=== PATIENT | female | born 1945 | race Caucasian/White ===

== ENCOUNTER → 2025-05-02 08:53 | Outpatient (REF) | payer MEDICARE, SELFPAY | LOC: HWRAD 08:53 | PROVIDERS: ATTENDING PHYSICIAN Specialist; FAMILY PHYSICIAN Internal Medicine | DX: M19.011 Primary osteoarthritis, right shoulder (principal) | CPT/HCPCS: 73200 ==

== ENCOUNTER 2025-06-06 06:20 | Day surgery (SDC) | payer MEDICARE, SELFPAY ==
--- NOTE | 2025-05-02 11:41 | CM ---
Late Note from 04/28
CM spoke with patient via Phone. CM confirmed demographics. Patient lives independently. Patient does not have a history of VN, SNF or DME. Patient is active with her PCP. Patient has medication coverage.
Patient plans to use a private PT for outpatient PT when medically cleared.
Patient does not know who will be driving her to her surgery at this time, but does have friends/family to make arrangements.
PLAN: home SDS, outpatient PT when medically cleared.
[2025-05-17 13:53] VITALS: BMI 32.5
[2025-05-17 14:38] VITALS: BMI 32.5
[2025-05-17 14:42] LABS: Hematocrit 43.7 % (37.0-47.0); Hemoglobin 14.8 g/dL (12.0-16.0); Mean Corp Hgb Conc. 33.9 g/dL (33.0-37.0); Mean Corpuscular Volume 89.2 fL (81.0-99.0); Platelet Count 265 10^3/uL (130-400); Red Cell Dist. Width 12.6 % (11.5-14.5)
[2025-05-17 14:58] LABS: ALT (SGPT) 17 U/L (0-35); AST (SGOT) 24 U/L (14-36); Albumin 4.6 g/dl (3.5-5.0); Alkaline Phosphatase 72 U/L (38-126); Blood Urea Nitrogen 17 mg/dl (7-17); Calcium 9.9 mg/dl (8.4-10.2); Carbon Dioxide 25 mmol/L (22-30); Chloride 107 mmol/L (98-107); Estimated Creatinine Clearance 64 ml/min; Glucose 116 mg/dl (70-99); Potassium 4.0 mmol/L (3.5-5.1); Sodium 141 mmol/L (135-145); Total Protein 7.5 g/dl (6.3-8.2); eGFR > 60.00
[2025-05-18 08:58] LABS: Glycohemoglobin (HgbA1c) 5.6 % (4.0-5.6)
[2025-05-30 14:12] VITALS: BMI 32.5
[2025-06-06] VITALS (9 sets, daily range): BP systolic 136–171; BP diastolic 59–86
[2025-06-06] MEDS: CELEBREX 200 MG PO (09:52)
[2025-06-06] MEDS: TYLENOL 1000 MG PO (09:52)
[2025-06-06] MEDS: NORMOSOL-R/PLASMALYTE-A 1000 IV (09:52)
--- NOTE | 2025-06-06 12:06 | W.DS.TRANS ---
DC Summary - Abatement Worker
-
Discharge Instructions:
Sleep Apnea Risk Intermediate
Discharge Diagnosis/Procedures R Reverse TSA Dr. Dawson 06/06/25
Diet As tolerated
Activity No strenuous activity
Driving Restrictions No driving
Instructions:
Stand-Alone Forms: SDS Total Shoulder D/C Inst.
Changes to Home Medications: Yes
Discharge Medications:
DC Medications w/original date entered in [facility]
celecoxib 200 mg capsule (Celebrex) 200 mg PO DAILY #14 caps 05/17/25
dexamethasone 4 mg tablet 4 mg PO BID Anti-inflammatory #7 tabs 05/17/25
famotidine 20 mg tablet (Pepcid) 20 mg PO HS #30 tabs 05/17/25
gabapentin 300 mg capsule 300 mg PO HS neuropathic pain/sleep #10 caps 05/17/25
mupirocin 2 % topical ointment 1 applic intranasal BID #1 tube 05/17/25
ondansetron HCl 4 mg tablet 4 mg PO Q6H PRN nausea and vomiting #30 tabs 05/17/25
tramadol 50 mg tablet 50 - 100 mg (1 - 2 x 50 mg) PO Q6H PRN moderate-severe pain #30 tabs 05/17/25
acetaminophen 325 mg tablet (Tylenol) 650 mg (2 x 325 mg) PO QID #1 tab 06/06/25
aspirin 325 mg tablet 325 mg PO DAILY blood clot prevention #1 tab 06/06/25
docusate sodium 100 mg capsule (Colace) 100 mg PO BID stool softner #1 cap 06/06/25
magnesium hydroxide 400 mg/5 mL oral suspension (Milk of Magnesia) 30 ml PO HS PRN constipation #1 mL 06/06/25
sennosides 8.6 mg tablet (Senokot) 17.2 mg (2 x 8.6 mg) PO BID laxative #2 tabs 06/06/25
Home Medication Changes
celecoxib 200 mg capsule (Celebrex) 200 mg PO DAILY #14 caps 05/17/25
dexamethasone 4 mg tablet 4 mg PO BID Anti-inflammatory #7 tabs 05/17/25
famotidine 20 mg tablet (Pepcid) 20 mg PO HS #30 tabs 05/17/25
gabapentin 300 mg capsule 300 mg PO HS neuropathic pain/sleep #10 caps 05/17/25
mupirocin 2 % topical ointment 1 applic intranasal BID #1 tube 05/17/25
ondansetron HCl 4 mg tablet 4 mg PO Q6H PRN nausea and vomiting #30 tabs 05/17/25
tramadol 50 mg tablet 50 - 100 mg (1 - 2 x 50 mg) PO Q6H PRN moderate-severe pain #30 tabs 05/17/25
acetaminophen 325 mg tablet (Tylenol) 650 mg (2 x 325 mg) PO QID #1 tab 06/06/25
aspirin 325 mg tablet 325 mg PO DAILY blood clot prevention #1 tab 06/06/25
docusate sodium 100 mg capsule (Colace) 100 mg PO BID stool softner #1 cap 06/06/25
magnesium hydroxide 400 mg/5 mL oral suspension (Milk of Magnesia) 30 ml PO HS PRN constipation #1 mL 06/06/25
sennosides 8.6 mg tablet (Senokot) 17.2 mg (2 x 8.6 mg) PO BID laxative #2 tabs 06/06/25
Pending Results: No
--- NOTE | 2025-06-06 14:30 | PTCARENOTE ---
Report passed over to Jesica VEGA at 1430. Will monitor patient.
[2025-06-06] MEDS: ANCEF 5 IV (15:16)
== END 2025-06-06 15:30 | disposition home or self-care (01) ==
LOC: SDS 06:20
PROVIDERS: ATTENDING PHYSICIAN Specialist; FAMILY PHYSICIAN Internal Medicine; OTHER PHYSICIAN Physician Assistant
DX: M19.011 Primary osteoarthritis, right shoulder (principal); Z96.611 Presence of right artificial shoulder joint
CPT/HCPCS: 23472; 36415; 73020; 80053; 83036; 85027; 87070; 93005; C1713; C1776

== ENCOUNTER 2025-10-07 08:23 | Emergency (ER) | payer MEDICARE, SELFPAY ==
[2025-10-07 08:33] VITALS: BP 168/85
[2025-10-07] MEDS: AUGMENTIN 875 MG/125 MG 1 TABLET PO (09:46)
--- NOTE | 2025-10-07 10:05 | ED.SKININJ ---
HPI-Injury
General
Chief Complaint: Bite
Source: patient
Time Seen by Provider: 10/07/25 09:17
History of Present Illness-Injury
Initial Injury comments:
80-year-old female with no reported significant past medical history presents to the emergency department for evaluation after she was bit on the left index finger by her neighbors jose j martinez yesterday morning, today noticed increased pain redness
and warmth to the volar surface of the left index finger. Patient denies any fevers, chills, rigors. Cat is unvaccinated. Patient is right-hand dominant and she believes her tetanus vaccine is up-to-date.
Past History
Past History
ED Past Medical History: None
ED Past Surgical History: Gynecological (Ovarian cyst ), Tonsilectomy and Other (Blepharoplasty bilateral eyes 03/14/2010 )
Social History
Tobacco: Non-smoker
Alcohol: None
Drug: None
Personal:
Living: alone
Employment: Employed
Review of Systems
Review of Systems
All Other Systems: ROS reviewed and negative except as documented in HPI and ROS
Phy Exam
Physical Exam
Physical Exam:
GENERAL: Alert , in no apparent distress
EYE: conjunctiva clear
Head: Normocephalic atraumatic
NECK: Supple,
ENT: mmm.
LUNGS: no acute respiratory distress
NEUROLOGICAL: Alert and oriented
SKIN: Warm and dry, volar surface of the left index finger at the level of the middle phalynx is erythematous/edematous but patient still able to ROM without difficulty. dry, non-weeping
MUSCULOSKELETAL: well perfused.
PSYCH: Normal and appropriate interaction.
Scores
Heart Failure Risk
Heart Failure Risk Score: Not Applicable
Heart Score for Chest Pain Patients
STEMI patient?: Not applicable
Withdrawal Assessment of Alcohol
Withdrawal Assessment Completed?: Not applicable
Course
Orders/Labs/Results
Orders:
Orders
10/07/25 09:38
Amoxicillin 875 mg/Clav 125 mg [Augmentin 875 mg/125 mg] 1 tablet PO NOW STA
Vital Signs
Initial and Last Documented VS:
Initial Vital Signs
Temp Pulse Resp BP Pulse Ox
97.9 F 75 18 168/85 99
10/07/25 08:33 10/07/25 08:33 10/07/25 08:33 10/07/25 08:33 10/07/25 08:33
Last Documented Vital Signs
Temp Pulse Resp BP Pulse Ox
97.9 F 79 20 142/74 98
10/07/25 08:33 10/07/25 10:12 10/07/25 10:12 10/07/25 10:12 10/07/25 10:12
MDM/Problems Addressed
Differential Diagnosis Includes:
Cellulitis
Felon
Tenosynovitis
Septic joint
MDM/Problems Addressed:
80-year-old female presenting to the ER for evaluation after cat bite, injury occurred approximately 24 hours ago, patient now with signs of at minimum a mild cellulitis. She is afebrile, no streaking or lymphangitis. At this time I do think
outpatient oral antibiotic treatment is reasonable but did discuss with patient reasons to present back to the emergency department including worsening erythema, fevers or diminished range of motion of the finger secondary to pain/swelling. I also
had an extensive conversation with the patient about rabies treatment given the cat is feral. She did not see the cat this morning with inability to potentially monitor the cat for any signs of rabies. After deliberating patient ultimately decided
she wanted to forego the rabies series. I did inform the patient that she would have approximately 21 days to get treatment for the rabies vaccine series if she were to change her mind. Patient would present back to the emergency department for
treatment as needed. Otherwise stable for discharge home. Prescription for Augmentin sent to pharmacy.
*Pulse Oximetry
SaO2: 99
Oxygen Mode of Delivery: Room air
Patient hypoxic: no
*Critical Care Note
Total Time (30-74mins, 75-104mins- exclusive of procedures): Not Applicable
ED Attending Note
-
Portions of this chart may have been created with voice recognition software.� Occasional wrong word or��sound alike� substitutions may have occurred due to the inherent limitations of voice recognition software.
Discharge Plan
Departure
Patient Disposition: Home (Routine Discharge)
Date of Disposition: 10/07/25
Time of Disposition: 10:05
Patient with high blood pressure during this ER visit?: Yes
Discharge Problem:
Cat bite, Cellulitis of left index finger
Instructions: Animal Bites (DC)
Prescriptions:
New
amoxicillin-pot clavulanate 875-125 mg tablet
1 tab PO BID Qty: 19 0RF
No Action
tramadol 50 mg tablet
50 - 100 mg PO Q6H PRN (Reason: moderate-severe pain) Qty: 30 0RF
Rx Instructions:
1 tab for moderate pain, 2 if severe
Dx total joint
celecoxib [Celebrex] 200 mg capsule
200 mg PO DAILY Qty: 14 0RF
Rx Instructions:
Take with food.
DO NOT take within 2 hours of Aspirin post-surgery.
dexamethasone 4 mg tablet
4 mg PO BID Qty: 7 0RF
Rx Instructions:
Start night of discharge and take twice a day until finished.
Take with food.
gabapentin 300 mg capsule
300 mg PO HS Qty: 10 0RF
mupirocin 2 % ointment
1 applic intranasal BID Qty: 1 0RF
ondansetron HCl 4 mg tablet
4 mg PO Q6H PRN (Reason: nausea and vomiting) Qty: 30 0RF
famotidine [Pepcid] 20 mg tablet
20 mg PO HS Qty: 30 0RF
Rx Instructions:
Take nightly while on post-surgical pain meds to reduce GI upset.
aspirin 325 mg tablet
325 mg PO DAILY Qty: 1 0RF
Rx Instructions:
Take with food
docusate sodium [Colace] 100 mg capsule
100 mg PO BID Qty: 1 0RF
sennosides [Senokot] 8.6 mg tablet
17.2 mg PO BID Qty: 2 0RF
magnesium hydroxide [Milk of Magnesia] 400 mg/5 mL suspension
30 ml PO HS PRN (Reason: constipation) Qty: 1 0RF
Rx Instructions:
continue taking colace and senokot as advised--if no bowel movement 1 day after surgery -add milk of mag
acetaminophen [Tylenol] 325 mg tablet
650 mg PO QID Qty: 1 0RF
Rx Instructions:
SCHEDULED DOSING
Referrals:
Concha Javier DO [Family Provider, Internal Medicine]
Interventions
Interventions:
*Risk Screen - Suicide Last Done: 10/07/25 08:33
*General Assessment Last Done: 10/07/25 08:33
*Neglect/Abuse Screening Last Done: 10/07/25 08:33
*ED COVID-19 Vaccine History Last Done: 10/07/25 10:11
*ED Influenza Vaccine History Last Done: 10/07/25 10:11
*Nursing Disposition Last Done: 10/07/25 10:12
ED-Skin Assessment Last Done: 10/07/25 09:30
Discharge Date and Time
Discharge Date/Time: 10/07/25 10:13
Print Language: LAO
[2025-10-07 10:12] VITALS: BP 142/74
== END 2025-10-07 10:13 | disposition home or self-care (01) ==
LOC: EMR 08:23
PROVIDERS: EMERGENCY PHYSICIAN Student in an Organized Health Care Education/Training Program; FAMILY PHYSICIAN Internal Medicine
DX: S60.471A Other superficial bite of left index finger, initial encounter (principal); L03.012 Cellulitis of left finger; W55.01XA Bitten by cat, initial encounter
CPT/HCPCS: 99283

== ENCOUNTER 2025-10-19 09:08 | Emergency (ER) | payer MEDICARE, SELFPAY ==
[2025-10-19 09:09] VITALS: BP 162/85
[2025-10-19 09:38] VITALS: BMI 38.4
--- NOTE | 2025-10-19 10:06 | ED.GENMED ---
History of Present Illness
General
Chief Complaint: Rabies
Source: patient
Exam Limitations: none
Time Seen by Provider: 10/19/25 09:32
Nursing documentation reviewed up to this point in time: agreed with
History of Present Illness
History of Present Illness:
Patient is a 80-year-old female who presents to the emergency department for rabies vaccination. Patient states she has been caring for approximately 22 stray cats in the [place] her home. About 2 weeks ago she was bit on the left index
finger by one of the kittens. She was seen in the emergency department at that time where she was started on a course of Augmentin which she has since completed. A lengthy discussion was had regarding proceeding with rabies vaccination series
however she declined. Over the past 2 weeks, she reports that multiple of the kittens have . She is unsure if the cat that initially bit her is still alive. She discussed with the vet who recommended that she receive a rabies vaccination.
She states that the bite tori on her left index finger has healed well.
She is unsure when her last tetanus vaccination was. She has no history of prior rabies immunizations.
Past History
Past History
ED Past Medical History: None
ED Past Surgical History: Gynecological (Ovarian cyst ), Tonsilectomy and Other (Blepharoplasty bilateral eyes 03/14/2010 )
Social History
Tobacco: Non-smoker
Alcohol: None
Drug: None
Personal:
Living: alone
Employment: Employed
Review of Systems
Review of Systems
Allergies reviewed?: Yes
All Other Systems: ROS reviewed and negative except as documented in HPI and ROS
Phy Exam
Physical Exam
Physical Exam:
Vitals: Hypertensive, otherwise vital signs stable. Afebrile
General: Patient is well appearing, no acute distress
Skin: Warm and dry, no rashes or lesions. No erythema, swelling, or tenderness of left index finger
Head: Normocephalic, atraumatic
Throat: Protecting airway
Neck: Normal ROM
Cardiac: Regular rate
Pulm: No apparent respiratory distress
Abdomen: Nondistended
Extremities: No evidence of cyanosis or edema
Neuro: Grossly intact
Psychiatric: Normal affect.
Course
Orders/Labs/Results
Orders:
Orders
10/19/25 10:03
Rabies Immune Globulin/Pf [HyperRAB] 1,606 unit IM NOW STA
10/19/25 10:15
Rabies Vaccine (Pcec)/Pf [Rabavert Rabies Vacc W-Diluent] 2.5 unit IM .ONCE ONE
Vital Signs
Initial and Last Documented VS:
Initial Vital Signs
Temp Pulse Resp BP Pulse Ox
98.3 F 71 18 162/85 99
10/19/25 09:09 10/19/25 09:09 10/19/25 09:09 10/19/25 09:09 10/19/25 09:09
Last Documented Vital Signs
Temp Pulse Resp BP Pulse Ox
98.3 F 71 18 162/85 99
10/19/25 09:09 10/19/25 09:09 10/19/25 09:09 10/19/25 09:09 10/19/25 10:07
MDM/Problems Addressed
Differential Diagnosis Includes:
Not limited to: Need for rabies prophylaxis, cellulitis, etc.
MDM/Problems Addressed:
80 year-old female presenting for rabies vaccination series approximately two weeks following stray cat bite to left finger. Completed course of antibiotics. No additional bites or scratches. Vitals and physical exam as above. Initial bite tori on
left index finger has healed well without any signs of cellulitis.
Given known bite from stray cat without ability to appropriately monitor animals � will proceed with rabies vaccination series. Vaccination series discussed w/ patient at length.
She received Rabies Immunoglobulin and dose #1 of the rabies vaccine in the emergency department which she tolerated well.
Advised her to contact primary care provider to ensure that her tetanus vaccine is up-to-date.
Return precautions discussed. Patient verbalized understanding, all questions answered.
Chronic conditions affecting care:
N/A
Acute Exacerbation and/or Progression of Chronic Illness:
N/A
*Pulse Oximetry
SaO2: 99
Oxygen Mode of Delivery: Room air
Patient hypoxic: no
*EKG
Interpreted by ED Provider?: NA
*Ramp Manager Interpretation
Rate: Ramp Manager- N/A
*Critical Care Note
Total Time (30-74mins, 75-104mins- exclusive of procedures): Not Applicable
Data Reviewed
Review of Other/Old Records Reveals: Records (Reviewed ED visit summary from 10/07/25)
ED Attending Note
-
Portions of this chart may have been created with voice recognition software.� Occasional wrong word or��sound alike� substitutions may have occurred due to the inherent limitations of voice recognition software.
Discharge Plan
Departure
Patient Disposition: Home (Routine Discharge)
Date of Disposition: 10/19/25
Time of Disposition: 10:23
Patient with high blood pressure during this ER visit?: Yes
Condition: Good
Discharge Problem:
Rabies, need for prophylactic vaccination against
Instructions: BLOOD PRESSURE, Rabies
Prescriptions:
New
RabAvert (PF) 2.5 unit suspension for reconstitution
2.5 unit IM ONCE Qty: 3 0RF
Rx Instructions:
Inject 1mL on 10/22/25, 10/26/25, and 11/02/25
No Action
tramadol 50 mg tablet
50 - 100 mg PO Q6H PRN (Reason: moderate-severe pain) Qty: 30 0RF
Rx Instructions:
1 tab for moderate pain, 2 if severe
Dx total joint
celecoxib [Celebrex] 200 mg capsule
200 mg PO DAILY Qty: 14 0RF
Rx Instructions:
Take with food.
DO NOT take within 2 hours of Aspirin post-surgery.
dexamethasone 4 mg tablet
4 mg PO BID Qty: 7 0RF
Rx Instructions:
Start night of discharge and take twice a day until finished.
Take with food.
gabapentin 300 mg capsule
300 mg PO HS Qty: 10 0RF
mupirocin 2 % ointment
1 applic intranasal BID Qty: 1 0RF
ondansetron HCl 4 mg tablet
4 mg PO Q6H PRN (Reason: nausea and vomiting) Qty: 30 0RF
famotidine [Pepcid] 20 mg tablet
20 mg PO HS Qty: 30 0RF
Rx Instructions:
Take nightly while on post-surgical pain meds to reduce GI upset.
aspirin 325 mg tablet
325 mg PO DAILY Qty: 1 0RF
Rx Instructions:
Take with food
docusate sodium [Colace] 100 mg capsule
100 mg PO BID Qty: 1 0RF
sennosides [Senokot] 8.6 mg tablet
17.2 mg PO BID Qty: 2 0RF
magnesium hydroxide [Milk of Magnesia] 400 mg/5 mL suspension
30 ml PO HS PRN (Reason: constipation) Qty: 1 0RF
Rx Instructions:
continue taking colace and senokot as advised--if no bowel movement 1 day after surgery -add milk of mag
acetaminophen [Tylenol] 325 mg tablet
650 mg PO QID Qty: 1 0RF
Rx Instructions:
SCHEDULED DOSING
amoxicillin-pot clavulanate 875-125 mg tablet
1 tab PO BID Qty: 19 0RF
Stand Alone Forms: Rabies Vaccine Post Exp Dosing
Activity Restrictions/Additional Instructions:
RETURN TO THE EMERGENCY DEPARTMENT WITH ANY EVIDENCE OF VACCINATION REACTION, REDNESS, PAIN OR SWELLING AROUND VACCINATION SITES, OR ANY OTHER CONCERNS
- You received the rabies immunoglobulin and dose one of the rabies vaccine today in the emergency department. As discussed, this is a 4 dose series and you require 3 additional doses on 10/22/25, 10/26/25, and 11/02/25. These can be done at the
emergency department or you can schedule appointments at the infusion clinic for weekday doses. Please bring paper prescription with you to the infusion clinic.
- Please contact your primary care to ensure that you have had a tetanus booster in the past 5 years.
Monitor your symptoms closely and return to the emergency department with any acute worsening/new symptoms or any other concerns
Interventions
Interventions:
*Risk Screen - Suicide Last Done: 10/19/25 09:09
*General Assessment Last Done: 10/19/25 09:09
*Neglect/Abuse Screening Last Done: 10/19/25 09:38
*ED- Fall Risk Assessment Last Done: 10/19/25 09:38
*ED COVID-19 Vaccine History Last Done: 10/19/25 09:38
*ED Influenza Vaccine History Last Done: 10/19/25 09:38
*Nursing Disposition Last Done: 10/19/25 11:00
Discharge Date and Time
Discharge Date/Time: 10/19/25 11:00
Print Language: MONTENEGRIN
[2025-10-19] MEDS: RABAVERT RABIES VACC W-DILUENT 2.5 UNIT IM (10:37)
== END 2025-10-19 11:00 | disposition home or self-care (01) ==
LOC: EMR 09:08
PROVIDERS: EMERGENCY PHYSICIAN Student in an Organized Health Care Education/Training Program; FAMILY PHYSICIAN Internal Medicine
DX: Z20.3 Contact with and (suspected) exposure to rabies (principal); Z23 Encounter for immunization; Z29.14 Encounter for prophylactic rabies immune globulin
CPT/HCPCS: 99282; 90471; 96372; 90375; 90675; 99283

== ENCOUNTER 2025-10-25 19:08 | Emergency (ER) | payer MEDICARE, SELFPAY ==
[2025-10-25 19:11] VITALS: BP 183/94
[2025-10-25 19:37] LABS: Hematocrit 45.7 % (37.0-47.0); Hemoglobin 15.7 g/dL (12.0-16.0); Mean Corp Hgb Conc. 34.4 g/dL (33.0-37.0); Mean Corpuscular Volume 84.0 fL (81.0-99.0); Nucleated Red Blood Cells % 0 %; Platelet Count 244 10^3/uL (130-400); Red Cell Dist. Width 12.8 % (11.5-14.5)
[2025-10-25 19:58] LABS: ALT (SGPT) 28 U/L (0-35); AST (SGOT) 31 U/L (14-36); Albumin 4.8 g/dl (3.5-5.0); Alkaline Phosphatase 84 U/L (38-126); Blood Urea Nitrogen 25 mg/dl (7-17); Calcium 9.3 mg/dl (8.4-10.2); Carbon Dioxide 22 mmol/L (22-30); Chloride 101 mmol/L (98-107); Glucose 150 mg/dl (70-99); Potassium 4.5 mmol/L (3.5-5.1); Sodium 131 mmol/L (135-145); Total Protein 8.1 g/dl (6.3-8.2); eGFR > 60.00
[2025-10-25 20:09] LABS: Troponin I < 0.012 ng/ml
[2025-10-25 22:33] VITALS: BP 150/68
[2025-10-25 23:00] VITALS: BP 153/81
--- NOTE | 2025-10-25 23:09 | ED.GENMED ---
History of Present Illness
General
Chief Complaint: Dizziness
Time Seen by Provider: 10/25/25 22:56
History of Present Illness
History of Present Illness:
80-year-old female with history of hyperlipidemia, vertigo, and iron deficiency anemia presents to the emergency department for evaluation of episodes of dizziness that been ongoing since yesterday. She reports 4 or more episodes today prior to
arrival and 2 more episodes in the waiting room. She states there is no obvious provoking factor, she describes this as a moderate lightheadedness, no near syncopal sensation. Episodes last 1 to 2 minutes before resolving. No associated chest
pain, heart palpitations, shortness of breath, or vision changes with the episodes. She does note that she has been on a low-carb diet for the past week and is also currently undergoing rabies postexposure vaccination series. Currently feels well
with no complaints
Past History
Past History
ED Past Medical History: None
ED Past Surgical History: Gynecological (Ovarian cyst ), Tonsilectomy and Other (Blepharoplasty bilateral eyes 03/14/2010 )
Social History
Tobacco: Non-smoker
Alcohol: None
Drug: None
Personal:
Living: alone
Employment: Employed
Review of Systems
Review of Systems
Allergies reviewed?: Yes
All Other Systems: ROS reviewed and negative except as documented in HPI and ROS
Phy Exam
Physical Exam
Physical Exam:
GEN: Well appearing, NAD, WDWN
HEENT: Oral mucosa moist, no scleral icterus
Cardiac: Regular rate and rhythm, subtle 1/6 murmur best heard at the right upper sternal border
Lung: No respiratory distress, no tachypnea, lungs clear to auscultation bilaterally
MSK: No gross deformity or injuries
Skin: Good color, no pallor or jaundice, no rashes
Neuro: AO x3, moves all extremities freely
Psych: Calm, cooperative
Course
Orders/Labs/Results
Orders:
Orders
10/25/25 19:16
ECG [Electrocardiogram (*1)] Urgent
Reason for Study: Vertigo / Dizzy
EKG- Treatment ONCE
10/25/25 19:21
Complete Blood Count/With Diff Urgent
Comprehensive Metabolic Panel Urgent
Troponin I Urgent
Abnormal Lab Results
10/25/25
19:21
RBC 5.44 H 10^6/uL
(4.20-5.40)
Sodium 131 L mmol/L
(135-145)
BUN 25 H mg/dl
(7-17)
Glucose 150 H mg/dl
(70-99)
10/25/25 19:21
10/25/25 19:21
Vital Signs
Initial and Last Documented VS:
Initial Vital Signs
Temp Pulse Resp BP Pulse Ox
98.3 F 75 20 183/94 95
10/25/25 19:11 10/25/25 19:11 10/25/25 19:11 10/25/25 19:11 10/25/25 19:11
Last Documented Vital Signs
Temp Pulse Resp BP Pulse Ox
98.3 F 63 17 135/66 97
10/25/25 19:11 10/26/25 00:15 10/26/25 00:15 10/26/25 00:00 10/26/25 00:15
MDM/Problems Addressed
MDM/Problems Addressed:
Patient had no events noted on telemetry monitoring in the ED and her labs are reassuring. Certainly could be a product of her recent dietary adjustment, certainly does not have any cardiac symptoms preceding these events however I have encouraged
her to follow-up with cardiology due to this symptom coupled with the subtle murmur I have auscultated on exam today. That said, she is suitable for outpatient management
Comment
Comment:
EKG independently interpreted by me shows normal sinus rhythm at a rate of [address] changes concerning for ischemia
*Pulse Oximetry
SaO2: 98
Oxygen Mode of Delivery: Room air
Patient hypoxic: no
*Critical Care Note
Total Time (30-74mins, 75-104mins- exclusive of procedures): Not Applicable
ED Attending Note
-
Portions of this chart may have been created with voice recognition software.� Occasional wrong word or��sound alike� substitutions may have occurred due to the inherent limitations of voice recognition software.
Discharge Plan
Departure
Patient Disposition: Home (Routine Discharge)
Date of Disposition: 10/26/25
Time of Disposition: 00:22
Patient with high blood pressure during this ER visit?: No
Discharge Problem:
Episodic lightheadedness
Instructions: Dizziness in adults - ED (DC)
Prescriptions:
No Action
RabAvert (PF) 2.5 unit suspension for reconstitution
2.5 unit IM ONCE Qty: 3 0RF
Rx Instructions:
Inject 1mL on 10/22/25, 10/26/25, and 11/02/25
acetaminophen [Tylenol] 325 mg tablet
650 mg PO PRN PRN (Reason: pain)
Rx Instructions:
SCHEDULED DOSING
Referrals:
Concha Javier, DO [Family Provider, Internal Medicine]
Activity Restrictions/Additional Instructions:
Follow-up with your primary care physician to discuss the potential benefit of an echocardiogram due to the heart murmur I heard on your exam today
If your dizzy spells continue please consider following up with cardiology for a Holter monitor, a wearable awake overnight monitor
While awaiting follow-up if you have recurrent symptoms please attempt to take your pulse, any pulse rate below 50 or above 120 in association with your dizziness is highly concerning and would warrant follow-up in the emergency department
Interventions
Interventions:
*Risk Screen - Suicide Last Done: 10/25/25 19:11
*General Assessment Last Done: 10/25/25 19:11
*Neglect/Abuse Screening Last Done: 10/25/25 22:38
*ED COVID-19 Vaccine History Last Done: 10/25/25 22:38
*ED Influenza Vaccine History Last Done: 10/25/25 22:38
*Nursing Disposition Last Done: 10/26/25 00:33
ED- Neurological Assessment Last Done: 10/26/25 00:31
ED Swallowing Screen Last Done: 10/26/25 00:31
Discharge Date and Time
Discharge Date/Time: 10/26/25 00:34
Print Language: CROATIAN
[2025-10-26] VITALS: BP 135/66
== END 2025-10-26 00:34 | disposition home or self-care (01) ==
LOC: EMR 19:08
PROVIDERS: Emergency Medicine; EMERGENCY PHYSICIAN Emergency Medicine; FAMILY PHYSICIAN Internal Medicine
DX: R42 Dizziness and giddiness (principal); E78.5 Hyperlipidemia, unspecified
CPT/HCPCS: 99284; 80053; 84484; 85025; 93005

== ENCOUNTER 2025-11-02 14:57 | Outpatient (RCR) | payer MEDICARE, SELFPAY ==
[2025-10-23 15:14] VITALS: BP 170/75
[2025-10-23] MEDS: RABAVERT RABIES VACC W-DILUENT 2.5 UNIT IM (15:28)
[2025-10-26 15:18] VITALS: BP 157/73
[2025-10-26] MEDS: RABAVERT RABIES VACC W-DILUENT 2.5 UNIT IM (15:26)
[2025-11-02 15:00] VITALS: BP 173/84
[2025-11-02] MEDS: RABAVERT RABIES VACC W-DILUENT 2.5 UNIT IM (15:26)
== END 2025-11-03 11:25 | disposition home or self-care (01) ==
LOC: OID 14:57
PROVIDERS: ATTENDING PHYSICIAN Student in an Organized Health Care Education/Training Program
DX: Z20.3 Contact with and (suspected) exposure to rabies (principal); Z23 Encounter for immunization
CPT/HCPCS: 90471; 90675